=== PATIENT | female | born 1960 | race Two or more races ===

== ENCOUNTER 2025-03-21 09:52 | Outpatient (AMB) | payer MEDICAID, SELFPAY ==
[2025-03-21 10:29] VITALS: BP 130/75; PULSE 86; RESP 17; TEMP 36.6; O2SAT 92; BMI 34.9
--- NOTE | 2025-03-21 10:29 | ORTHONT_ITS ---
Vital signs 03/21/25 10:29 Height 1.63 m Height Method Stated Weight 92.334 kg Weight Measurement Method Standing Scale BMI 34.9 BP 130/75 Blood Pressure Source Automatic Cuff Blood Pressure Location Right Upper Arm Position Sitting Respiration 17 Pulse 86 Pulse Source Monitor Temp 97.8 F Temp Source Temporal Artery Scan Pulse Oximetry (%) 92 L Oxygen Delivery Method Room Air Med/Allergies Allergies & Medications Allergies No Known Allergies Allergy (Verified 03/21/25 10:30) Medication Reconciliation amlodipine 10 mg tablet 10 mg PO QDAY #30 tabs 08/05/22 [Rx Confirmed 03/21/25] atorvastatin 40 mg tablet 40 mg PO QPM #30 tabs 08/05/22 [Rx Confirmed 03/21/25] bisacodyl 5 mg tablet,delayed release (Dulcolax (bisacodyl)) 5 mg PO QDAY PRN constipation #30 tabs 08/05/22 [Rx Confirmed 03/21/25] blood sugar diagnostic (Accu-Chek Nataliia Plus test strips) #100 ea 08/05/22 [Rx Confirmed 03/21/25] blood-glucose meter (Accu-Chek Nataliia Plus Meter) #1 ea 08/05/22 [Rx Confirmed 03/21/25] cefuroxime axetil 500 mg tablet 500 mg PO BID infection #20 tabs 08/05/22 [Rx Confirmed 03/21/25] insulin glargine 100 unit/mL (3 mL) subcutaneous pen (Lantus Solostar U-100 Insulin) 10 unit (0.1 mL) subcut QPM #15 mL 08/05/22 [Rx Confirmed 03/21/25] lancets (Accu-Chek Softclix Lancets) #200 ea 08/05/22 [Rx Confirmed 03/21/25] lisinopril 30 mg tablet 30 mg PO QDAY #30 tabs 08/05/22 [Rx Confirmed 03/21/25] metformin 500 mg tablet,extended release 24 hr 500 mg PO BID #60 tabs 08/05/22 [Rx Confirmed 03/21/25] cephalexin 500 mg capsule 500 mg PO TID #21 caps 03/29/23 [Rx Confirmed 03/21/25] Exam Exam Patient is in no acute distress and is cooperative with the examination today. Breathing is nonlabored. Patient has a normal mood and affect. The patient has a gait that is nonantalgic Bilateral extremities were evaluated and demonstrates sensation intact to light touch. Palpable pedal pulses are present. No significant edema is present. Bilateral hips were examined. The patient has no pain with log roll of the hips. Internal rotation to 30 degrees and external rotation to 30 degrees is painless. Negative FADIR. Left knee was examined today. The left knee is in reasonable alignment. Range of motion from 0-120 degrees. Knee is stable to varus and valgus as well as AP translation with <5mm. Patient has a negative McMurrays. There is no pain with patellofemoral compression and no crepitus noted. The knee is nontender to palpation. The right knee was also examined. The right knee is in neutral alignment. Range of motion from 0-120 degrees. Knee is stable to varus and valgus as well as AP translation with <5mm. Patient has a negative McMurrays. There is no pain with patellofemoral compression and no crepitus noted. The knee is nontender to palpation diffusely. She is able to perform a straight leg raise and has no extensor lag Assessment and Plan Problem List (1) Right patella fracture: Status: Acute Plan: Patient is a 64-year-old female with a right knee patella fracture and an intact extensor mechanism. I would like to see weightbearing x-rays. I do think it is likely healed because she is nontender. We will see her back in 1 week after x-rays are done Office Procedures GNS Level of Care Nursing/Assessment Patient Status: Initial/New Patient Nursing Assessment/Reassesment: Medication Reconciliation and Update PMH in EMR Coordination of Care: Complex Care and Chronic Disease 1-5, Consent,records obtained, informed consent, Education Simp Pt/Fam, 1 Ins Authorization, Lab and Imaging orders, Results/Orders obtained and Staff clarify orders Special Needs: Language special needs (SLOVENIAN ) New Patient Charge New Patient Point Assignment: 1104 New Patient Point Charge: SEMICONDUCTOR MANUFACTURING TECHNICIAN Level 3 ([id number]) [place] Intake Visit Data Collection New Patient or Established: Established Patient (seen at [facility] within 3 years) Reason for Visit:: FRACTURE OFR RT PATELLA Seen by Clinical Staff ONLY (RN/MA): No PCP or OBGYN visit in last 3 months: Yes Hx Now: No Do You Feel Safe at Home: Yes Authorities Contacted: N/A Questionairres Past Medical History Past Medical History Have you ever been diagnosed with any of the following: Neurological Problems Cerebrovascular Accident (CVA): No Alzheimer's Disease: No Cardiology Problems Myocardial Infarction: No Angina: No Hypercholesterolemia: Yes Congestive Heart Failure: No Hypertension: Yes Respiratory Problems Chronic Obstructive Pulmonary Disease (COPD): No Asthma: No Emphysema: No Smoking: No Smoking Cessation Counseling: No Smoking Exposure: No Tobacco Use: No Stomache/Intestinal Problems Liver Cancer: No Pancreatic Cancer: No Genital/Urinary Problems Renal Disease: No Musculoskeletal Problems Muscular Dystrophy: No Bone Cancer: No Endocrine Problems Diabetes Mellitus Type 1: No Diabetes Mellitus Type 2: Yes Blood Problems Sickle Cell Disease: No Other Problems Down Syndrome: No Developmental Delay: No Subjective Visit Visit for: new patient and knee (RT KNEE PATELLA) Immunization / Flu Flu Vaccine in the Last 12 Months: Yes Flu Vaccine Exclusion Criteria: Already Received History of Present Illness Chief complaint: Right knee pain Kristin is a pleasant 64-year-old female with a nondisplaced patella fracture in [place] 4 months ago. She was in a knee immobilizer for 2 months. She reports that there is minimal pain but her knee does feel weak. She is never done formal physical therapy. Personal History Red flag PMH: none Pain Pain level (0-10): 7 Pain duration: 11/2024 Pain location: inside (medial) and anterior Pain quality: dull, aching and shocking Pain timing: night and increases with activity Associated signs & symptoms: weakness and stiffness Ambulatory data Ambulatory device: cane Walking distance (blocks): 0 Walking distance (minutes): 1 Treatments Number of previous injections: 0 Number of Physical Therapy sessions: 0 Improvement with NSAIDS: n/a Review of Systems Review of Systems: All systems negative unless otherwise noted in HPI.
--- NOTE | 2025-03-21 10:53 | XR_ITS ---
Examination: Bilateral knees AP single view PA lateral axial right knee 3 views TECHNIQUE: Bilateral AP knees standing single view Right knee PA standing flexion, standing lateral, axial right knee 3 views total 4 views Exam date and time: March 21, 2025 1107 hours INDICATIONS: Right knee pain with walking, patellar fracture November 2024 FINDINGS: Severe osteopenia Moderate narrowing medial and lateral joint spaces bilaterally Comminuted fracture traversing the midportion of the patella without significant separation of the fracture fragments No patellar dislocation Small knee effusion IMPRESSION: Comminuted fractures midportion patella without significant separation of the fracture fragments
== END 2025-03-21 11:04 | disposition home or self-care (01) ==
LOC: HODSRG 09:52
PROVIDERS: PCP Physician Assistant; Referring Provider Physician Assistant; Supervising Provider Orthopaedic Surgery Adult Reconstructive Orthopaedic Surgery; Visit Provider Orthopaedic Surgery Adult Reconstructive Orthopaedic Surgery
DX: S82.001D Unspecified fracture of right patella, subsequent encounter for closed fracture with routine healing (principal); X58.XXXD Exposure to other specified factors, subsequent encounter; I10 Essential (primary) hypertension; E78.00 Pure hypercholesterolemia, unspecified; E11.9 Type 2 diabetes mellitus without complications
CPT/HCPCS: 73564; 99203; G0463

== ENCOUNTER 2025-04-07 10:51 | Outpatient (AMB) | payer MEDICAID, SELFPAY ==
--- NOTE | 2025-04-07 11:48 | PD.ORTHCLVIS ---
Vital signs 04/07/25 11:49 Height 1.63 m Height Method Stated Weight 92.108 kg Weight Measurement Method Standing Scale BMI 34.7 BP 124/71 Blood Pressure Source Automatic Cuff Blood Pressure Location Left Upper Arm Position Sitting Respiration 18 Pulse 86 Pulse Source Monitor Temp 97.0 F Temp Source Temporal Artery Scan Pulse Oximetry (%) 92 L Oxygen Delivery Method Room Air Med/Allergies Allergies & Medications Allergies No Known Allergies Allergy (Verified 04/07/25 11:50) Medication Reconciliation amlodipine 10 mg tablet 10 mg PO QDAY #30 tabs 08/05/22 [Rx Confirmed 04/07/25] atorvastatin 40 mg tablet 40 mg PO QPM #30 tabs 08/05/22 [Rx Confirmed 04/07/25] bisacodyl 5 mg tablet,delayed release (Dulcolax (bisacodyl)) 5 mg PO QDAY PRN constipation #30 tabs 08/05/22 [Rx Confirmed 04/07/25] blood sugar diagnostic (Accu-Chek Nataliia Plus test strips) #100 ea 08/05/22 [Rx Confirmed 04/07/25] blood-glucose meter (Accu-Chek Nataliia Plus Meter) #1 ea 08/05/22 [Rx Confirmed 04/07/25] cefuroxime axetil 500 mg tablet 500 mg PO BID infection #20 tabs 08/05/22 [Rx Confirmed 04/07/25] insulin glargine 100 unit/mL (3 mL) subcutaneous pen (Lantus Solostar U-100 Insulin) 10 unit (0.1 mL) subcut QPM #15 mL 08/05/22 [Rx Confirmed 04/07/25] lancets (Accu-Chek Softclix Lancets) #200 ea 08/05/22 [Rx Confirmed 04/07/25] lisinopril 30 mg tablet 30 mg PO QDAY #30 tabs 08/05/22 [Rx Confirmed 04/07/25] metformin 500 mg tablet,extended release 24 hr 500 mg PO BID #60 tabs 08/05/22 [Rx Confirmed 04/07/25] cephalexin 500 mg capsule 500 mg PO TID #21 caps 03/29/23 [Rx Confirmed 04/07/25] Exam Exam Patient is in no acute distress and is cooperative with the examination today. Breathing is nonlabored. Patient has a normal mood and affect. The patient has a gait that is nonantalgic Bilateral extremities were evaluated and demonstrates sensation intact to light touch. Palpable pedal pulses are present. No significant edema is present. Bilateral hips were examined. The patient has no pain with log roll of the hips. Internal rotation to 30 degrees and external rotation to 30 degrees is painless. Negative FADIR. Left knee was examined today. The left knee is in reasonable alignment. Range of motion from 0-120 degrees. Knee is stable to varus and valgus as well as AP translation with <5mm. Patient has a negative McMurrays. There is no pain with patellofemoral compression and no crepitus noted. The knee is nontender to palpation. The right knee was also examined. The right knee is in neutral alignment. Range of motion from 0-120 degrees. Knee is stable to varus and valgus as well as AP translation with <5mm. Patient has a negative McMurrays. There is no pain with patellofemoral compression and no crepitus noted. The knee is nontender to palpation diffusely. She is able to perform a straight leg raise and has no extensor lag X-rays demonstrate a comminuted patella fracture with some healing. The articular surface is not perfect but it has been 4 months from surgery Assessment and Plan Problem List (1) Right patella fracture: Status: Acute Plan: Patient is a 64-year-old female with a right knee patella fracture and an intact extensor mechanism. We will see the patient in approximately 4 to 6 weeks with x-rays Office Procedures GNS Level of Care Nursing/Assessment Patient Status: Established Patient Nursing Assessment/Reassesment: Medication Reconciliation, Update PMH in EMR and Vital Signs Coordination of Care: Complex Care and Chronic Disease 1-5, Education Complex Pt/Fam, Consent,records obtained, informed consent, Results/Orders obtained and Staff clarify orders Special Needs: Language special needs Established Patient Charge Established Patient Point Assignment: 95 Established Patient Point Charge: EP Level 3 (80-115) [place] Intake Visit Data Collection New Patient or Established: Established Patient (seen at [facility] within 3 years) Reason for Visit:: XRAY RESULTS Seen by Clinical Staff ONLY (RN/MA): No PCP or OBGYN visit in last 3 months: Yes Hx Now: No Do You Feel Safe at Home: Yes Authorities Contacted: N/A Questionairres Past Medical History Past Medical History Have you ever been diagnosed with any of the following: Neurological Problems Cerebrovascular Accident (CVA): No Alzheimer's Disease: No Cardiology Problems Myocardial Infarction: No Angina: No Hypercholesterolemia: Yes Congestive Heart Failure: No Hypertension: Yes Respiratory Problems Chronic Obstructive Pulmonary Disease (COPD): No Asthma: No Emphysema: No Smoking: No Smoking Cessation Counseling: No Smoking Exposure: No Tobacco Use: No Stomache/Intestinal Problems Liver Cancer: No Pancreatic Cancer: No Genital/Urinary Problems Renal Disease: No Musculoskeletal Problems Muscular Dystrophy: No Bone Cancer: No Endocrine Problems Diabetes Mellitus Type 1: No Diabetes Mellitus Type 2: Yes Blood Problems Sickle Cell Disease: No Other Problems Down Syndrome: No Developmental Delay: No Subjective Visit Visit for: follow up visit and x-rays (RESULTS) Immunization / Flu Flu Vaccine in the Last 12 Months: No Flu Vaccine Exclusion Criteria: No Exclusion Criteria History of Present Illness Chief complaint: Right knee pain Kristin is a pleasant 64-year-old female with a nondisplaced patella fracture in [place] 4 months ago. She was in a knee immobilizer for 2 months. She reports that there is minimal pain but her knee does feel weak. She is never done formal physical therapy. Personal History Red flag PMH: none Pain Pain level (0-10): 0 Pain duration: 11/2024 Pain location: inside (medial) and anterior Pain quality: dull, aching and shocking Pain timing: night and increases with activity Associated signs & symptoms: none Ambulatory data Ambulatory device: none Walking distance (blocks): 0 Walking distance (minutes): 1 Treatments Number of previous injections: 0 Improvement with previous injections: No Number of Physical Therapy sessions: 0 Improvement with PT: No Improvement with NSAIDS: no Review of Systems Review of Systems: All systems negative unless otherwise noted in HPI.
[2025-04-07 11:49] VITALS: BP 124/71; PULSE 86; RESP 18; TEMP 36.1; O2SAT 92; BMI 34.7
== END 2025-04-07 12:09 | disposition home or self-care (01) ==
LOC: HODSRG 10:51
PROVIDERS: PCP Physician Assistant; Referring Provider Physician Assistant; Supervising Provider Orthopaedic Surgery Adult Reconstructive Orthopaedic Surgery; Visit Provider Orthopaedic Surgery Adult Reconstructive Orthopaedic Surgery
DX: S82.001D Unspecified fracture of right patella, subsequent encounter for closed fracture with routine healing (principal); X58.XXXD Exposure to other specified factors, subsequent encounter; I10 Essential (primary) hypertension; E78.00 Pure hypercholesterolemia, unspecified
CPT/HCPCS: 99213; G0463

== ENCOUNTER 2025-05-17 10:19 | Outpatient (RCR) | payer MEDICAID, SELFPAY ==
--- NOTE | 2025-05-17 10:42 | PT.OIERPT ---
PT OP Initial Eval Patient Information Outpatient Physical Therapy Treatment Date: 05/17/25 Visit Reasons: Fracture of RT patella Medical Diagnosis: S82.001A Treatment Dx #1: R knee weakness Start of Care: 05/17/25 Date of Onset: November 2024 Smoking Status Smoking Status: Never smoker Initial Assessment Subjective: Pt is 65 yr old armenian speaking female who fell and fractured the R patella in November in [place]. She went to the hospital and was given a knee immobilizer brace for 6 weeks. Today she reports without a brace and denies pain normally. She says she can ambulate about 1 hr with the cart or a cane for longer distances. She reports difficulty stepping up a curb and putting full weight on that foot. PMH: high cholesterol, HTN, DM, vertigo, R patella FX Imaging: Comminuted fractures midportion patella without significant separation of the?? fracture fragments?? Pt goal: to walk further with more strength Objective: R knee AROM: Flexion: 115 deg Extension: full Strength Quads: 3+/5 HS: 4/5 Gait: symmetrical with mild lateral sway to the R Patella compression: negative PROM: patella WNL medial lateral without pain Assessment: Pt presents with low pain of the R patella but quad weakness. Pt would benefit from skilled therapy and has fair rehab potential to meet goals. Short Term and Flue Cleaner Goals 1. Independent with HEP ? 2. Improved R quad and hamstring strength to 4/5 ? 3. Improved ambulatory tolerance to community distances with symmetrical ? gait pattern no limited by R knee weakness Treatment Plan 1. Manual therapy ? 2. Therex ? 3. Modalities as indicated Frequency and Duration: 2x a week for 18 sessions Certification Dates: 05/17/25 to 08/16/25 Procedure Charges OP PT Eval Mod Complex 30 minutes: Yes
== END 2025-05-22 23:59 | disposition home or self-care (01) ==
LOC: CPTX 10:19
PROVIDERS: PCP Orthopaedic Surgery Adult Reconstructive Orthopaedic Surgery; Referring Provider Orthopaedic Surgery Adult Reconstructive Orthopaedic Surgery; Visit Provider Orthopaedic Surgery Adult Reconstructive Orthopaedic Surgery
DX: R53.1 Weakness (principal); S82.001D Unspecified fracture of right patella, subsequent encounter for closed fracture with routine healing; W19.XXXD Unspecified fall, subsequent encounter; I10 Essential (primary) hypertension; E11.9 Type 2 diabetes mellitus without complications
CPT/HCPCS: 97162

== ENCOUNTER 2025-05-18 10:05 | Outpatient (AMB) | payer MEDICAID, SELFPAY ==
--- NOTE | 2025-05-18 10:44 | ORTHONT_ITS ---
Vital signs 05/18/25 10:53 Height 1.63 m Height Method Stated Weight 93.44 kg Weight Measurement Method Standing Scale BMI 35.2 BP 152/84 H Blood Pressure Source Automatic Cuff Blood Pressure Location Right Upper Arm Position Sitting Respiration 18 Pulse 79 Pulse Source Monitor Temp 98.0 F Temp Source Temporal Artery Scan Pulse Oximetry (%) 97 Oxygen Delivery Method Room Air Med/Allergies Allergies & Medications Allergies No Known Allergies Allergy (Verified 05/18/25 10:45) Medication Reconciliation amlodipine 10 mg tablet 10 mg PO QDAY #30 tabs 08/05/22 [Rx Confirmed 05/18/25] atorvastatin 40 mg tablet 40 mg PO QPM #30 tabs 08/05/22 [Rx Confirmed 05/18/25] bisacodyl 5 mg tablet,delayed release (Dulcolax (bisacodyl)) 5 mg PO QDAY PRN constipation #30 tabs 08/05/22 [Rx Confirmed 05/18/25] blood sugar diagnostic (Accu-Chek Nataliia Plus test strips) #100 ea 08/05/22 [Rx Confirmed 05/18/25] blood-glucose meter (Accu-Chek Nataliia Plus Meter) #1 ea 08/05/22 [Rx Confirmed 05/18/25] cefuroxime axetil 500 mg tablet 500 mg PO BID infection #20 tabs 08/05/22 [Rx Confirmed 05/18/25] insulin glargine 100 unit/mL (3 mL) subcutaneous pen (Lantus Solostar U-100 Insulin) 10 unit (0.1 mL) subcut QPM #15 mL 08/05/22 [Rx Confirmed 05/18/25] lancets (Accu-Chek Softclix Lancets) #200 ea 08/05/22 [Rx Confirmed 05/18/25] lisinopril 30 mg tablet 30 mg PO QDAY #30 tabs 08/05/22 [Rx Confirmed 05/18/25] metformin 500 mg tablet,extended release 24 hr 500 mg PO BID #60 tabs 08/05/22 [Rx Confirmed 05/18/25] cephalexin 500 mg capsule 500 mg PO TID #21 caps 03/29/23 [Rx Confirmed 05/18/25] Exam Exam Patient is in no acute distress and is cooperative with the examination today. Breathing is nonlabored. Patient has a normal mood and affect. The patient has a gait that is nonantalgic Bilateral extremities were evaluated and demonstrates sensation intact to light touch. Palpable pedal pulses are present. No significant edema is present. Bilateral hips were examined. The patient has no pain with log roll of the hips. Internal rotation to 30 degrees and external rotation to 30 degrees is painless. Negative FADIR. Left knee was examined today. The left knee is in reasonable alignment. Range of motion from 0-120 degrees. Knee is stable to varus and valgus as well as AP translation with <5mm. Patient has a negative McMurrays. There is no pain with patellofemoral compression and no crepitus noted. The knee is nontender to palpation. The right knee was also examined. The right knee is in neutral alignment. Range of motion from 0-120 degrees. Knee is stable to varus and valgus as well as AP translation with <5mm. Patient has a negative McMurrays. There is no pain with patellofemoral compression and no crepitus noted. The knee is nontender to palpation diffusely. She is able to perform a straight leg raise and has no extensor lag X-rays demonstrate a comminuted patella fracture with some healing. The articular surface is not perfect but it has been 4 months from surgery Assessment and Plan Problem List (1) Right patella fracture: Status: Acute Plan: Patient is a 64-year-old female with a right knee patella fracture and an intact extensor mechanism. The articular surface is not appropriately reduced as she never had surgery. We discussed that she is at risk for posttraumatic arthritis. We recommend continued physical therapy. I would not recommend surgery at this point given the fact that she has an intact extensor mechanism is walking with no assistive device. She understands that she is at high risk for arthritis. Office Procedures GNS Level of Care Nursing/Assessment Patient Status: Established Patient Nursing Assessment/Reassesment: Medication Reconciliation, Update PMH in EMR and Vital Signs Coordination of Care: Complex Care and Chronic Disease 1-5, Education Complex Pt/Fam, Consent,records obtained, informed consent, Results/Orders obtained and Staff clarify orders Special Needs: Language special needs Established Patient Charge Established Patient Point Assignment: 95 Established Patient Point Charge: EP Level 3 (80-115) [place] Intake Visit Data Collection New Patient or Established: Established Patient (seen at [facility] within 3 years) Reason for Visit:: F/U PATELLA FXS Seen by Clinical Staff ONLY (RN/MA): No Library Clerical Assistant Required: Yes PCP or OBGYN visit in last 3 months: Yes Hx Now: No Do You Feel Safe at Home: Yes Authorities Contacted: N/A Questionairres Past Medical History Past Medical History Have you ever been diagnosed with any of the following: Neurological Problems Cerebrovascular Accident (CVA): No Alzheimer's Disease: No Cardiology Problems Myocardial Infarction: No Angina: No Hypercholesterolemia: Yes Congestive Heart Failure: No Hypertension: Yes Respiratory Problems Chronic Obstructive Pulmonary Disease (COPD): No Asthma: No Emphysema: No Smoking: No Smoking Cessation Counseling: No Smoking Exposure: No Tobacco Use: No Stomache/Intestinal Problems Liver Cancer: No Pancreatic Cancer: No Genital/Urinary Problems Renal Disease: No Musculoskeletal Problems Muscular Dystrophy: No Bone Cancer: No Endocrine Problems Diabetes Mellitus Type 1: No Diabetes Mellitus Type 2: Yes Blood Problems Sickle Cell Disease: No Other Problems Down Syndrome: No Developmental Delay: No Subjective Visit Visit for: follow up visit and other (specify) (PATELLA FX) Immunization / Flu Flu Vaccine in the Last 12 Months: No Flu Vaccine Exclusion Criteria: No Exclusion Criteria History of Present Illness Chief complaint: Right knee pain Kristin is a pleasant 64-year-old female with a nondisplaced patella fracture in [place] 4 months ago. She was in a knee immobilizer for 2 months. She reports that there is minimal pain but her knee does feel weak. She has started physical therapy Personal History Red flag PMH: none Pain Pain level (0-10): 0 Pain duration: 11/2024 Pain location: inside (medial) and anterior Pain quality: dull, aching and shocking Pain timing: night and increases with activity Associated signs & symptoms: weakness Ambulatory data Ambulatory device: none Walking distance (blocks): 0 Walking distance (minutes): 1 Treatments Number of previous injections: 0 Improvement with previous injections: No Number of Physical Therapy sessions: 0 Improvement with PT: No Improvement with NSAIDS: no Review of Systems Review of Systems: All systems negative unless otherwise noted in HPI.
[2025-05-18 10:53] VITALS: BP 152/84; PULSE 79; RESP 18; TEMP 36.7; O2SAT 97; BMI 35.2
== END 2025-05-18 10:48 | disposition home or self-care (01) ==
LOC: HODSRG 10:05
PROVIDERS: PCP Physician Assistant; Referring Provider Physician Assistant; Supervising Provider Orthopaedic Surgery Adult Reconstructive Orthopaedic Surgery; Visit Provider Orthopaedic Surgery Adult Reconstructive Orthopaedic Surgery
DX: S82.001D Unspecified fracture of right patella, subsequent encounter for closed fracture with routine healing (principal); X58.XXXD Exposure to other specified factors, subsequent encounter; I10 Essential (primary) hypertension; E78.00 Pure hypercholesterolemia, unspecified; E11.9 Type 2 diabetes mellitus without complications
CPT/HCPCS: 99213; G0463

== ENCOUNTER 2025-05-29 16:00 | Outpatient (RCR) | payer MEDICAID, SELFPAY ==
--- NOTE | 2025-05-23 16:45 | PT.ODAYNRPT ---
PT Outpatient Daily Note OP Daily Note Outpatient Physical Therapy Treatment Date: 05/23/25 Visit Reasons: FX RIGHT PATELLA Subjective: Low pain in the knee Objective: See F/S for therex MHP: x5' R knee Assessment: R quad weakness limits squat tolerance Plan: Continue per POC Length of Time (minutes) of Treatment: 30 Minutes Procedure Charges Therapeutic Exercise 30 minutes: Yes
--- NOTE | 2025-05-25 16:35 | PT.ODAYNRPT ---
PT Outpatient Daily Note OP Daily Note Outpatient Physical Therapy Treatment Date: 05/25/25 Visit Reasons: FX RIGHT PATELLA Subjective: Low pain in the knee today, just feels weak Objective: See F/S for therex Assessment: R quad weakness limits squat tolerance Plan: Continue per POC Length of Time (minutes) of Treatment: 30 Minutes Procedure Charges Therapeutic Exercise 30 minutes: Yes
--- NOTE | 2025-05-29 17:37 | PT.ODAYNRPT ---
PT Outpatient Daily Note OP Daily Note Outpatient Physical Therapy Treatment Date: 05/29/25 Visit Reasons: FX RIGHT PATELLA Subjective: No pain in the knee today, just feels weak Objective: See F/S for therex Assessment: R quad weakness limits squat tolerance but can do step ups Plan: Continue per POC Length of Time (minutes) of Treatment: 30 Minutes Procedure Charges Therapeutic Exercise 30 minutes: Yes
--- NOTE | 2025-06-27 09:09 | PT.ODS1RPT ---
PT OP Progress/Discharge Note Date of Service: 06/27/25 Progress Note/DC Note Progress Note/Discharge Note: DC Note Patient Information Visit Reasons: FX RIGHT PATELLA Service Continue Service or Discharge: Discharge Discharge Date: 06/27/25 Status Assessment: Pt attended the initial evaluation and 3 Rx visits and then called to discharge therapy due to worsening knee pain. Thank you for your referrals. Plan: Self-D/C
== END 2025-06-22 23:59 | disposition home or self-care (01) ==
LOC: CPTX 16:00
PROVIDERS: PCP Orthopaedic Surgery Adult Reconstructive Orthopaedic Surgery; Referring Provider Orthopaedic Surgery Adult Reconstructive Orthopaedic Surgery; Visit Provider Orthopaedic Surgery Adult Reconstructive Orthopaedic Surgery
DX: M25.561 Pain in right knee (principal); R53.1 Weakness; S82.001D Unspecified fracture of right patella, subsequent encounter for closed fracture with routine healing; W19.XXXD Unspecified fall, subsequent encounter; I10 Essential (primary) hypertension; E11.9 Type 2 diabetes mellitus without complications
CPT/HCPCS: 97110